=== PATIENT | female | born 1995 | race Two or more races ===

== ENCOUNTER 2017-06-26 19:50 | Emergency (ER) | payer OTHER ==
[~2017-06-26] VITALS: Ht 157.5 cm; Wt 60.8 kg
[2017-06-26] MEDS ORDERED: PRE NATAL VITAMINS (20:08)
[2017-06-26] MEDS ORDERED: ACETAMINOPHEN 325 MG TABLET ONE (20:24)
[2017-06-26] MEDS ORDERED: ACETAMINOPHEN ES 500 MG TABLET PO ONE (20:30)
--- NOTE | 2017-06-26 20:30 | NUR ---
Patient discharged to home in stable conditon. Written and verbal after care instructions given. Patient verbalizes understanding of instructions. Patient able to ambulate unassisted with steady gait. Patient left with all personal belonings.
[2017-06-26 20:36] VITALS: BP 122/74
== END 2017-06-26 20:30 | disposition home or self-care (01) ==
LOC: ER 19:53
DX: S70.12XA Contusion of left thigh, initial encounter (principal); O26.892 Other specified pregnancy related conditions, second trimester; Z79.899 Other long term (current) drug therapy; Z3A.00 Weeks of gestation of pregnancy not specified; X58.XXXA Exposure to other specified factors, initial encounter; Y93.89 Activity, other specified; Y92.89 Other specified places as the place of occurrence of the external cause
CPT/HCPCS: A4663